=== PATIENT | female | born 1985 | race Asian ===

== ENCOUNTER 2017-10-08 07:46 | Emergency (ER) | payer BC ==
[2017-10-08 09:00] VITALS: BP 104/56
--- NOTE | 2017-10-08 10:05 | UC ---
Abdominal Pain Female HPI - HPI Summary HPI Summary: abdominal pain x 5 days pain is lower abd, + nausea and vomiting since Saturday + diarrhea , no dyuria felt worse this morning and passed out no fever, no chills, + fatigue - History of Current Complaint Chief Complaint: UCAbdominalPain Stated Complaint: NAUSEA/DIZZY/DIARRHEA Time Seen by Provider: 10/08/17 08:00 Hx Obtained From: Patient Hx Last Menstrual Period: 09/19/17 ?: No Onset/Duration: Sudden Onset, Gradual Onset, Lasting Days - 5, Still Present, Worse Since - this morning Timing: Constant Severity Initially: Moderate Severity Currently: Severe Pain Intensity: 5 Location: Discrete At: RLQ, Discrete At: LLQ, Suprapubic Radiates: No Character: Aching, Cramping Aggravating Factor(s): Nothing Alleviating Factor(s): Nothing Associated Signs and Symptoms: Positive: Decreased Appetite, Nausea, Vomiting, Diarrhea. Negative: Fever, Cough, Chest Pain, Dizzy, Back Pain, Constipation, Blood in Stool, Urinary Symptoms, Vaginal Bleeding, Vaginal Discharge Allergies/Adverse Reactions: Allergies Allergy/AdvReac Type Severity Reaction Status Date / Time ibuprofen Allergy Eyes Verified 10/08/17 07:56 Itchy/Swollen/Red/Watery Penicillins Allergy Nausea And Verified 10/08/17 07:56 Vomiting Home Medications: Home Medications Acetaminophen [Acetaminophen Extra Strength] 1,000 mg PO ONCE PRN 10/08/17 [ History Confirmed 10/08/17] Ondansetron ODT TAB* [Zofran 4 MG Odt TAB*] 4 mg PO Q6H PRN 10/08/17 [History Confirmed 10/08/17] PMH/Surg Hx/FS Hx/Imm Hx Previously Healthy: Yes - Surgical History Surgical History: None - Family History Known Family History: Positive: None Negative: Hypertension - Social History Alcohol Use: Occasionally Substance Use Type: None Smoking Status (MU): Never Smoked Tobacco Review of Systems Constitutional: Fatigue Skin: Negative Eyes: Negative ENT: Negative Respiratory: Negative Cardiovascular: Negative Gastrointestinal: Abdominal Pain, Vomiting, Diarrhea, Nausea Genitourinary: Negative Motor: Negative Is Patient Immunocompromised?: No All Other Systems Reviewed And Are Negative: Yes Physical Exam Triage Information Reviewed: Yes Appearance: No Pain Distress, Ill-Appearing Vital Signs: Initial Vital Signs Temp 98.8 F 10/08/17 07:58 Pulse 72 10/08/17 07:58 Resp 16 10/08/17 07:58 BP 98/54 10/08/17 07:58 Pulse Ox 99 10/08/17 07:58 Vital Signs Reviewed: Yes Eyes: Positive: Conjunctiva Clear ENT: Positive: Normal ENT inspection, Hearing grossly normal, Pharynx normal Neck: Positive: Supple, Nontender, No Lymphadenopathy Respiratory: Positive: Chest non-tender, Lungs clear, Normal breath sounds Cardiovascular: Positive: RRR, No Murmur, Pulses Normal Abdomen Description: Positive: Soft, Other: - sever tenderness lower abd. Negative: CVA Tenderness (R), CVA Tenderness (L), Distended, Guarding Bowel Sounds: Positive: Present Musculoskeletal Exam: Normal Musculoskeletal: Positive: Strength Intact, ROM Intact, No Edema Neurological: Positive: Alert Skin Exam: Normal Abd Pain Female Course/Dx - Differential Dx/Diagnosis Provider Diagnoses: positive . abdominal pain. syncopee Discharge - Sign-Out/Discharge Documenting (check all that apply): Discharge/Admit/Transfer - Discharge Plan Condition: Stable Disposition: TRANS HIGHER LVL OF CARE FAC Patient Education Materials: (ED), Acute Abdominal Pain (ED) Referrals: No Primary Care Phys,NOPCP [Primary Care Provider] - Additional Instructions: abdominal pain , nausea and vomiting + test, pt. could not tolerate trans vaginal US to R/O ectopic ] still concern about acute appendicitis , ovarian cyst please go to [facility] ED for eval and tx - Billing Disposition and Condition Condition: STABLE Disposition: Trans Higher Lvl of Care Fac
== END 2017-10-08 09:53 | disposition short-term general hospital (02) ==
LOC: UCCORT 07:46
DX: R10.9 Unspecified abdominal pain (principal); R55 Syncope and collapse; Z88.6 Allergy status to analgesic agent; Z88.0 Allergy status to penicillin; Z32.01 Encounter for pregnancy test, result positive
CPT/HCPCS: 81003; 84702; 93005; 99202; G0463

== ENCOUNTER 2019-06-17 07:21 | Emergency (ER) | payer BC, OTHER ==
[2019-06-17 07:38] VITALS: BP 105/60
--- NOTE | 2019-06-17 07:59 | UC ---
Throat Pain/Nasal Wallace HPI - HPI Summary HPI Summary: sore throat x 2 days pain is 2 out of 10 , mild cough , mild runny nose/ nasal congestion no fever, no chills, no body aches - History of Current Complaint Chief Complaint: UCRespiratory Stated Complaint: SORE THROAT Time Seen by Provider: 06/17/19 07:31 Hx Obtained From: Patient Hx Last Menstrual Period: 05/23/19 ?: No Onset/Duration: Gradual Onset, Lasting Days - 2, Still Present Severity: Mild Pain Intensity: 2 Cough: Nonproductive Associated Signs & Symptoms: Negative: Sinus Discomfort, Nasal Discharge, Fever , Rash - Allergies/Home Medications Allergies/Adverse Reactions: Allergies Allergy/AdvReac Type Severity Reaction Status Date / Time ibuprofen Allergy Eyes Verified 10/08/17 07:56 Itchy/Swollen/Red/Watery Penicillins AdvReac Nausea And Verified 06/17/19 07:39 Vomiting Home Medications: Home Medications O C 1 tab PO QPM 06/17/19 [History Confirmed 06/17/19] PMH/Surg Hx/FS Hx/Imm Hx Previously Healthy: Yes - Surgical History Surgical History: Yes Surgery Procedure, Year, and Place: 08/2018 - Family History Known Family History: Positive: None Negative: Hypertension - Social History Alcohol Use: Occasionally Substance Use Type: None Smoking Status (MU): Never Smoked Tobacco Review of Systems All Other Systems Reviewed And Are Negative: Yes Constitutional: Positive: Negative Skin: Positive: Negative Eyes: Positive: Negative ENT: Positive: Sore Throat Respiratory: Positive: Cough Is Patient Immunocompromised?: No Physical Exam Triage Information Reviewed: Yes Appearance: Well-Appearing, No Pain Distress, Well-Nourished Vital Signs: Initial Vital Signs Temp 98.4 F 06/17/19 07:30 Pulse 69 06/17/19 07:30 Resp 20 06/17/19 07:30 BP 105/60 06/17/19 07:30 Pulse Ox 100 06/17/19 07:30 Vital Signs Reviewed: Yes Eye Exam: Normal Eyes: Positive: Conjunctiva Clear ENT: Positive: Normal ENT inspection, Hearing grossly normal, Pharyngeal erythema, TMs normal. Negative: Nasal congestion, Nasal drainage Neck: Positive: Supple, Nontender, No Lymphadenopathy Respiratory: Positive: Chest non-tender, Lungs clear, Normal breath sounds Cardiovascular: Positive: RRR, No Murmur, Pulses Normal Skin Exam: Normal Throat Pain/Nasal Course/Dx - Differential Dx/Diagnosis Provider Diagnosis: Pharyngitis Discharge ED - Sign-Out/Discharge Documenting (check all that apply): Patient Departure All imaging exams completed and their final reports reviewed: No Studies - Discharge Plan Condition: Stable Disposition: HOME Patient Education Materials: Pharyngitis (ED) Referrals: No Primary Care Phys,NOPCP [Primary Care Provider] - If Needed Additional Instructions: negative rapid strep viral illness, no need for antibiotics cont. with symptomatic tx - Billing Disposition and Condition Condition: STABLE Disposition: Home
== END 2019-06-17 08:07 | disposition home or self-care (01) ==
LOC: UCCORT 07:21
DX: J02.9 Acute pharyngitis, unspecified (principal); Z88.0 Allergy status to penicillin; Z88.8 Allergy status to other drugs, medicaments and biological substances
CPT/HCPCS: 87651; 99211; G0463

== ENCOUNTER 2019-06-28 10:29 | Emergency (ER) | payer BC ==
[2019-06-28 11:21] VITALS: BP 101/59
[2019-06-28 11:32] LABS: Influenza A Molecular POSITIVE (Negative)
--- NOTE | 2019-06-28 11:48 | UC ---
FLU HPI - HPI Summary HPI Summary: Pt presetns with c/o suddeno nset of fever, chills, body aches, cough, nasal congestion X 2 days. - History of Current Complaint Chief Complaint: UCGeneralIllness Stated Complaint: FEVER, HEADACHE, ACHY BODY Time Seen by Provider: 06/28/19 11:43 Hx Obtained From: Patient Hx Last Menstrual Period: 05/23/19 ?: No Onset/Duration: Sudden Onset, Lasting Days, Still Present Severity Currently: Moderate Severity Initially: Moderate Pain Intensity: 8 Associated Signs & Symptoms: Positive: Fever, Myalgia, Cough, Sore Throat, Nasal Congestion, Headache Related Hx: Possible Flu/Infectious Exposure - Risk Factors Influenza Risk Factors: Negative - Allergy/Home Medications Allergies/Adverse Reactions: Allergies Allergy/AdvReac Type Severity Reaction Status Date / Time ibuprofen Allergy Eyes Verified 06/28/19 11:21 Itchy/Swollen/Red/Watery Penicillins AdvReac Nausea And Verified 06/28/19 11:21 Vomiting Home Medications: Home Medications Acetaminophen [Acetaminophen Extra Strength] 1,000 mg PO ONCE PRN 10/08/17 [ History Confirmed 06/28/19] O C 1 tab PO QPM 06/17/19 [History Confirmed 06/28/19] Oseltamivir CAP* [Tamiflu CAP*] 75 mg PO Q12H #10 cap 06/28/19 [Rx] PMH/Surg Hx/FS Hx/Imm Hx Previously Healthy: Yes - Surgical History Surgical History: Yes Surgery Procedure, Year, and Place: 08/2018 - Family History Known Family History: Positive: Cardiac Disease Negative: Hypertension - Social History Occupation: Employed Full-time Lives: With Family Alcohol Use: Occasionally Substance Use Type: None Smoking Status (MU): Never Smoked Tobacco Have You Smoked in the Last Year: No - Immunization History Vaccination Up to Date: Yes Review of Systems All Other Systems Reviewed And Are Negative: Yes Constitutional: Positive: Fever, Chills, Fatigue Skin: Positive: Negative Eyes: Positive: Negative ENT: Positive: Sore Throat, Ear Ache, Nasal Discharge, Sinus Congestion Respiratory: Positive: Cough Cardiovascular: Positive: Negative Gastrointestinal: Positive: Negative Genitourinary: Positive: Negative Motor: Positive: Negative Neurovascular: Positive: Negative Musculoskeletal: Positive: Myalgia Neurological/Mental Status: Positive: Headache Psychological: Positive: Negative Is Patient Immunocompromised?: No Physical Exam Triage Information Reviewed: Yes Appearance: Ill-Appearing Vital Signs: Initial Vital Signs Temp 100.2 F 06/28/19 11:17 Pulse 93 06/28/19 11:17 Resp 20 06/28/19 11:17 BP 101/59 06/28/19 11:17 Pulse Ox 98 06/28/19 11:17 Vital Signs Reviewed: Yes Eye Exam: Normal ENT: Positive: Nasal congestion Dental Exam: Normal Neck exam: Normal Respiratory Exam: Normal Cardiovascular Exam: Normal Musculoskeletal Exam: Normal Neurological Exam: Normal Psychological Exam: Normal Skin Exam: Normal Flu Course/Dx - Differential Dx/Diagnosis Differential Diagnosis/HQI/PQRI: Bronchitis, Influenza, Upper Respiratory Infection Provider Diagnosis: Influenza A Discharge ED - Sign-Out/Discharge Documenting (check all that apply): Patient Departure All imaging exams completed and their final reports reviewed: No Studies - Discharge Plan Condition: Stable Disposition: HOME Prescriptions: Oseltamivir CAP* [Tamiflu CAP*] 75 mg PO Q12H #10 cap Patient Education Materials: Influenza (ED) Forms: *Work Release Referrals: [facility] [Outside] - If Needed No Primary Care Phys,NOPCP [Primary Care Provider] - - Billing Disposition and Condition Condition: STABLE Disposition: Home
== END 2019-06-28 11:57 | disposition home or self-care (01) ==
LOC: UCCORT 10:29
DX: J10.1 Influenza due to other identified influenza virus with other respiratory manifestations (principal); Z88.0 Allergy status to penicillin; Z88.6 Allergy status to analgesic agent
CPT/HCPCS: 99212; G0463